=== PATIENT | male | born 1965 | race Caucasian/White ===

== ENCOUNTER 2016-12-25 10:04 | Outpatient (CLI) | payer BC, MEDICARE ==
--- NOTE | 2016-12-25 12:24 | XRay Report ---
Bilateral knees, 4 views of each: Knee pain. Views of the right knee demonstrate a small meniscal calcification in the lateral compartment. The joint spaces are preserved and the articular surfaces are smooth. There is slight retropatella narrowing between the patella and the medial condyle. There is normal alignment of the knee. Bones may be slightly demineralized. No swelling and no effusion. The lateral compartment of the left knee is narrowed however the articular surfaces appeared generally smooth. There is a tibial spur just anterior to the eminence. There is a mild genu varus angulation of the knee joint. Mineralization similar to the right side. There is no effusion and no swelling. Impression: 1. Lateral joint narrowing of the left knee. 2. Mild medial retropatella narrowing of the right knee.
== END 2016-12-25 10:05 | disposition home or self-care (01) ==
LOC: SPVIMAG 10:04
PROVIDERS: ATTEND Orthopaedic Surgery
DX: M25.861 Other specified joint disorders, right knee (principal); M25.862 Other specified joint disorders, left knee